=== PATIENT | female | born 1950 | race Two or more races ===

== ENCOUNTER → 2023-02-24 | Outpatient (CLI) | payer OTHER ==
[~2023-02-24] MED LIST: REGADENOSON 0.4 MG/5 ML SYRG IV ONE
[2023-02-24 10:03] VITALS: BP 136/78
== END | disposition home or self-care (01) ==
LOC: XYW 09:03
PROVIDERS: ATTEND Specialist
DX: R00.2 Palpitations (principal)
CPT/HCPCS: 78452; 93017; A9500; J2785

== ENCOUNTER 2024-02-11 07:09 | Day surgery (SDC) | payer OTHER ==
[~2024-02-11] VITALS: Ht 157.5 cm; Wt 44.9 kg
[~2024-02-11 07:09] MED LIST changes: +APIX5TAB PO; +CHOL20007 PO; +DILT120T3 PO; +LEVO25TA6 PO; +LOSA-533 PO; +POM INH; -REGADENOSON 0.4 MG/5 ML SYRG IV ONE; +SOTA80TA PO; +TIOT1AER IN
[2024-02-11] MEDS ORDERED: LIDOCAINE 2%HCL (LOCAL ANESTH.) INJ 20ML MDV ONE (09:13)
[2024-02-11] MEDS ORDERED: MIDAZOLAM HCL 2MG/2ML 2ml VIAL (1mg/ml) ONE ×2 (09:20→09:50)
[2024-02-11] MEDS ORDERED: fentaNYL CITRATE 100 MCG/2 ML VL ONE ×2 (09:20→09:49)
[2024-02-11] MEDS ORDERED: LIDOCAINE 1% HCL (LOCAL ANESTH.) INJ 20ML MDV ONE (09:22)
[2024-02-11] MEDS ORDERED: VANCOMYCIN 1GM/200ML 200 ML IV ONE (09:23)
[2024-02-11] MEDS ORDERED: VANCOMYCIN HCL 1000 MG VL ONE (09:27)
[2024-02-11] MEDS ORDERED: ceFAZolin 1GM VL ONE (09:46)
[2024-02-11 10:07] VITALS: BP 136/71; PULSE 107; RESP 22; O2SAT 98
[2024-02-11 10:22] VITALS: BP 129/68; PULSE 63; RESP 12; O2SAT 99
[2024-02-11 10:37] VITALS: BP 127/58; PULSE 60; RESP 12; O2SAT 98
[2024-02-11 10:51] VITALS: BP 143/80; PULSE 62; RESP 12; O2SAT 98
[2024-02-11 11:07] VITALS: BP 148/68; PULSE 63; RESP 12; O2SAT 96
== END 2024-02-11 11:30 | disposition home or self-care (01) ==
LOC: CATH 07:09
PROVIDERS: ATTEND Internal Medicine
DX: T82.7XXA Infection and inflammatory reaction due to other cardiac and vascular devices, implants and grafts, initial encounter (principal); L08.89 Other specified local infections of the skin and subcutaneous tissue; Y82.9 Unspecified medical devices associated with adverse incidents; F12.90 Cannabis use, unspecified, uncomplicated; F17.210 Nicotine dependence, cigarettes, uncomplicated; Z79.890 Hormone replacement therapy; Z79.899 Other long term (current) drug therapy; Z98.890 Other specified postprocedural states; Z88.0 Allergy status to penicillin; Z88.7 Allergy status to serum and vaccine; Z83.3 Family history of diabetes mellitus; Z82.49 Family history of ischemic heart disease and other diseases of the circulatory system; Z80.9 Family history of malignant neoplasm, unspecified; Z95.0 Presence of cardiac pacemaker
CPT/HCPCS: 11042; J0690; J2001; J2250; J3010; J3370; 99152

== ENCOUNTER 2024-08-04 09:01 | Inpatient (IN) | payer OTHER ==
[~2024-08-04] VITALS: Ht 157.5 cm; Wt 42.4 kg
[2024-08-04] VITALS (12 sets, daily range): BP systolic 127–172; BP diastolic 75–115; PULSE 81–148; RESP 12–18; TEMP 98.1; O2SAT 88–99
[~2024-08-04 09:01] MED LIST changes: +ALBU108A5 IN; +DOXY-346 PO; +FAMO-12 PO
[2024-08-04] MEDS: VANCOMYCIN 1GM/250ML 250 ML IV ONE (10:00)
[2024-08-04] MEDS: MIDAZOLAM HCL 2MG/2ML 2ml VIAL (1mg/ml) ONE ×2 (11:43→13:17)
[2024-08-04] MEDS: fentaNYL CITRATE 100 MCG/2 ML VL ONE ×2 (11:43→13:17)
[2024-08-04] MEDS: VANCOMYCIN 1GM/200ML PREMIX 200 ML IV ONE (11:43)
[2024-08-04] MEDS: LIDOCAINE 2%HCL (LOCAL ANESTH.) INJ 20ML MDV ONE ×2 (11:44→13:06)
[2024-08-04] MEDS: VANCOMYCIN HCL 1000 MG VL ONE ×2 (11:51→12:24)
[2024-08-04] MEDS: HEPARIN IN NS 1000Units/500mL 1,500 ML ONE (12:49)
[2024-08-04] MEDS: HEPARIN SODIUM (PORCINE) 5000 UNITS/ML 1ML VIAL ONE (13:06)
[2024-08-04] MEDS: HYDROcodone-ACET 5/325MG TAB PO ONE (15:31)
[2024-08-04] MEDS: dilTIAZem 25 MG/5 ML VIAL IV ONE (16:15)
[2024-08-04] MEDS: DIGOXIN (250MCG/ML) 2 ML AMPULE ONE (16:17)
[2024-08-04] MEDS: ONDANSETRON HCL 4 MG/2 ML VIAL IV ONE (16:28)
[2024-08-04] MEDS: DIGOXIN (250MCG/ML) 2 ML AMPULE IV ONE (16:28)
[2024-08-04] MEDS: ONDANSETRON HCL 4 MG/2 ML VIAL ONE (16:29)
[2024-08-04] MEDS: dilTIAZem HCL 50 MG/10 ML VIAL IV ONE (16:47)
[2024-08-04 20:04] LABS: Chloride 101 mmol/L (98-107); Potassium 3.6 mmol/L (3.5-5.1); Sodium 136 mmol/L (136-145)
[2024-08-04 20:05] LABS: Anion Gap 9 (5-15); Calcium 8.8 mg/dL (8.7-10.4); Carbon Dioxide 26 mmol/L (20-31)
[2024-08-04 20:10] LABS: BUN/Creatinine Ratio 15.6 (10.0-20.0); Blood Urea Nitrogen 10 mg/dL (9-23); Glucose 145 mg/dL (74-106)
[2024-08-04] MEDS: APIXABAN 5 MG TAB PO SCH (21:35)
[2024-08-04] MEDS: DOXYCYCLINE 100 MG TAB/CAP PO SCH (21:44)
[2024-08-04] MEDS: dilTIAZem 120MG ER CAP PO SCH (21:49)
[2024-08-04] MEDS: SOTALOL HCL 80 MG TAB PO SCH (22:00)
[2024-08-05] VITALS (9 sets, daily range): BP systolic 141–160; BP diastolic 75–97; PULSE 60–188; RESP 16–20; TEMP 98–98.5; O2SAT 92–99
[2024-08-05] MEDS: LEVOTHYROXINE SODIUM 25 MCG TAB PO SCH (06:45)
[2024-08-05] MEDS: DIGOXIN 0.125 MG TAB PO SCH (08:13)
[2024-08-05] MEDS: LOSARTAN POTASSIUM 25 MG TAB PO SCH (08:15)
[2024-08-05] MEDS ORDERED: dilTIAZem 125mg/125ml BAG KIT 125 ML IV SCH (08:30)
[2024-08-05] MEDS: dilTIAZem 25 MG/5 ML VIAL IV ONE (08:36)
[2024-08-05] MEDS ORDERED: DIGO1TAB48 PO (13:45)
[2024-08-05] MEDS ORDERED: DOX100T PO (13:45)
[2024-08-05] MEDS: ONDANSETRON HCL 4 MG/2 ML VIAL IV PRN (22:03)
[2024-08-06] VITALS (9 sets, daily range): BP systolic 132–162; BP diastolic 69–85; PULSE 64–78; RESP 16–20; TEMP 97.8–98.3; O2SAT 96–100
[2024-08-06] MEDS: ACETAMINOPHEN 325 MG TAB PO PRN (23:59)
[2024-08-07] VITALS (8 sets, daily range): BP systolic 125–146; BP diastolic 50–93; PULSE 60–85; RESP 17–20; TEMP 97–98.1; O2SAT 97–100
[2024-08-08] VITALS (8 sets, daily range): BP systolic 125–158; BP diastolic 58–79; PULSE 60–82; RESP 17–20; TEMP 97–98.5; O2SAT 93–99
[2024-08-08 06:30] LABS: Basophils # (auto) 0.1 10 ^3/uL (0-0.2); Basophils % (auto) 0.6 % (0.0-2.0); Eosinophils # (auto) 0.2 10 ^3/uL (0-0.8); Eosinophils % (auto) 1.9 % (0.0-7.0); Hematocrit 41.1 % (36.0-46.0); Hemoglobin 14.2 g/dL (12.2-16.2); Lymphocytes # (auto) 3.9 10 ^3/uL (0.4-5.4); Lymphocytes % (auto) 37.1 % (10.0-50.0); Mean Corpuscular Hemoglobin 32.5 pg (28.0-32.0); Mean Corpuscular Hgb Conc. 34.5 g/dL (32.0-36.0); Monocytes # (auto) 1.2 10 ^3/uL (0-1.3); Monocytes % (auto) 11.8 % (0.0-12.0); Neutrophils % (auto) 48.6 % (37.0-80.0); Nucleated Red Blood Cells % 0.1 %; Platelet Count (auto) 258 10^3/uL (140-450); Red Blood Cells 4.37 10^6/uL (4.0-5.20); Red Cell Distribution Width 13.4 % (11.8-14.3); White Blood Cell 10.4 10^3/uL (4.4-10.8)
[2024-08-08 06:41] LABS: INR 1.08 (0.9-1.15); Partial Thromboplastin Time 32.5 SEC (24.5-34.5); Prothrombin Time 11.4 sec (9.3-11.8)
[2024-08-08] MEDS: LIDOCAINE 1% (LOCAL ANESTH.) PF 5ml SDV ID ONE (15:10)
[2024-08-08] MEDS ORDERED: VANCOMYCIN PER PHARMACY 0 MG IV SCH (16:00)
[2024-08-08] MEDS: VANCOMYCIN 750mg/150ml 150 ML IV SCH (17:19)
[2024-08-08] MEDS: cefTRIAXone 2GM/50ML D5W 50 ML IV SCH (18:06)
[2024-08-08] MEDS: SODIUM CHLOR 0.9% PF (SALINE LOCK) 10ML VIAL/SYR IV SCH (22:47)
[2024-08-09] VITALS (8 sets, daily range): BP systolic 127–159; BP diastolic 72–92; PULSE 60–86; RESP 16–20; TEMP 96.7–98.4; O2SAT 94–99
[2024-08-09 05:57] LABS: Basophils # (auto) 0 10 ^3/uL (0-0.2); Basophils % (auto) 0.5 % (0.0-2.0); Eosinophils # (auto) 0.2 10 ^3/uL (0-0.8); Eosinophils % (auto) 1.6 % (0.0-7.0); Hematocrit 37.5 % (36.0-46.0); Hemoglobin 12.9 g/dL (12.2-16.2); Lymphocytes # (auto) 3.2 10 ^3/uL (0.4-5.4); Lymphocytes % (auto) 31.8 % (10.0-50.0); Mean Corpuscular Hemoglobin 32.4 pg (28.0-32.0); Mean Corpuscular Hgb Conc. 34.3 g/dL (32.0-36.0); Mean Corpuscular Volume 94.5 fL (80.0-100.0); Monocytes % (auto) 10.5 % (0.0-12.0); Neutrophils # (auto) 5.5 10 ^3/uL (1.6-8.6); Neutrophils % (auto) 55.6 % (37.0-80.0); Nucleated Red Blood Cells % 0.1 %; Platelet Count (auto) 262 10^3/uL (140-450); Red Blood Cells 3.97 10^6/uL (4.0-5.20); Red Cell Distribution Width 13.6 % (11.8-14.3); White Blood Cell 9.9 10^3/uL (4.4-10.8)
[2024-08-10] VITALS (8 sets, daily range): BP systolic 133–159; BP diastolic 62–87; PULSE 62–89; RESP 16–20; TEMP 36.7; O2SAT 96–100
[2024-08-10 04:48] LABS: Anion Gap 5 (5-15); Carbon Dioxide 24 mmol/L (20-31); Chloride 101 mmol/L (98-107); Potassium 4.2 mmol/L (3.5-5.1)
[2024-08-10 04:49] LABS: Calcium 9.3 mg/dL (8.7-10.4)
[2024-08-10 04:54] LABS: Blood Urea Nitrogen 13 mg/dL (9-23); Glucose 113 mg/dL (74-106)
[2024-08-10 04:56] LABS: Sodium 130 mmol/L (136-145)
== END 2024-08-10 19:10 | disposition home health service (06) | DRG 229 ==
LOC: CATH 09:01 → TELE 14:04 → TELE-WESTW 17:31
PROVIDERS: ADMIT Internal Medicine; ATTEND Internal Medicine
PROC: 0JPT0PZ Removal of Cardiac Rhythm Related Device from Trunk Subcutaneous Tissue and Fascia, Open Approach (ICD-10-PCS; principal; 2024-08-04)
PROC: 02HK3NZ Insertion of Intracardiac Pacemaker into Right Ventricle, Percutaneous Approach (ICD-10-PCS; 2024-08-04)
PROC: 02PA3MZ Removal of Cardiac Lead from Heart, Percutaneous Approach (ICD-10-PCS; 2024-08-04)
PROC: 02HV33Z Insertion of Infusion Device into Superior Vena Cava, Percutaneous Approach (ICD-10-PCS; 2024-08-08)
PROC: B548ZZA Ultrasonography of Superior Vena Cava, Guidance (ICD-10-PCS; 2024-08-08)
DX: T82.7XXA Infection and inflammatory reaction due to other cardiac and vascular devices, implants and grafts, initial encounter (principal); Z00.6 Encounter for examination for normal comparison and control in clinical research program; J98.11 Atelectasis; Z68.1 Body mass index [BMI] 19.9 or less, adult; I48.20 Chronic atrial fibrillation, unspecified; Y83.1 Surgical operation with implant of artificial internal device as the cause of abnormal reaction of the patient, or of later complication, without mention of misadventure at the time of the procedure; E78.5 Hyperlipidemia, unspecified; I10 Essential (primary) hypertension; E03.9 Hypothyroidism, unspecified; Z95.0 Presence of cardiac pacemaker; Z79.01 Long term (current) use of anticoagulants; Z88.1 Allergy status to other antibiotic agents; Z79.899 Other long term (current) drug therapy; Y92.89 Other specified places as the place of occurrence of the external cause
CPT/HCPCS: 33233; 33234; 33274; 36415; 36569; 71045; 76937; 80048; 80202; 82565; 85025; 85610; 85730; 87040; 93005; 99152; G0378; J2250; J2405